=== PATIENT | male | born 1995 | race Two or more races ===

== ENCOUNTER 2020-11-09 15:04 | Inpatient (IN) ==
[2020-11-09 16:17] LABS: Basophils # (auto) 0.01 K/uL (0-0.2); Basophils % (auto) 0.1 %; Eosinophils # (auto) 0.02 K/uL (0-0.5); Eosinophils % (auto) 0.2 %; Hematocrit (blood only) 56.5 % (42-52); Hemoglobin 20.5 g/dL (14.0-18.0); Immature Granulocytes # (auto) 0.11 K/uL (0.00-0.02); Immature Granulocytes % (auto) 0.9 %; Lymphocytes # (auto) 1.94 K/uL (1.2-3.4); Lymphocytes % (auto) 16.5 %; Mean Platelet Volume 10.1 fL (7.4-10.4); Monocytes # (auto) 1.16 K/uL (0.11-0.59); Monocytes % (auto) 9.9 %; Neutrophils # (auto) 8.49 K/uL (1.4-6.5); Neutrophils % (auto) 72.4 %; Platelet Count 254 K/uL (130-400); RDW Coefficient of Variation 13.3 % (11.5-14.5); RDW Standard Deviation 44.6 fL (36.4-46.3); Red Blood Count 6.21 M/uL (4.7-6.1); White Blood Count 11.73 K/uL (4.8-10.8)
[2020-11-09 16:22] LABS: Mean Corpuscular Hgb Conc 36.3 g/dL (32-36)
[2020-11-09 16:32] LABS: Albumin Level 5.7 gm/dl (3.4-5.0); BUN Creatinine Ratio 13.1 (10-20); Calcium 10.5 mg/dl (8.5-10.1); Creatinine Clr Calc Pharmacy 50.3 ml/min; Est GFR (African American) 42.2 ml/min; Est GFR (Non-African American) 36.4 ml/min; Potassium 4.1 mmol/L (3.5-5.1)
[2020-11-09 16:34] LABS: Albumin Globulin Ratio 1.3 (0.9-2); Bilirubin,Total 1.2 mg/dl (0.2-1); Globulin 4.5 gm/dl (2.5-4.0); Total Protein 10.2 gm/dl (6.4-8.2)
[2020-11-09] MEDS ORDERED: ONDANSETRON INJ 2 MG/ML 2 ML VIAL IV STA (16:46)
[2020-11-09] MEDS ORDERED: SODIUM CHLORIDE 0.9% 1000ML 2,000 ML IV ONE (16:46)
[2020-11-09] MEDS ORDERED: KETOROLAC TROMETHAMINE 15 MG/ML VIAL IV ONE (16:46)
--- NOTE | 2020-11-09 16:55 | Emergency Department Note ---
Impression & Plan LORENE (acute kidney injury), Rhabdomyolysis, Hypovolemia, Hyponatremia, Metabolic acidosis ED Provider Note NAME: JOHN TOMLINSON AGE: 25 SEX: M : 1995 ARRIVES VIA: Walk-In INFORMANT: Patient ED PROVIDER(S): Edin Mcmanus DO CHIEF COMPLAINT: Weakness muscle cramps HPI: Patient is a 25-year-old male who presents to the ER for diffuse muscle pain. This started yesterday. He has been unable to keep anything down. He admits to persistent nausea and vomiting. He has diffuse crampy abdominal pain. 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 Does admit to a mild diffuse headache. No chest pain or shortness of breath. Diffuse abdominal pain. Denies any dysuria urgency or frequency. Muscle cramps are throughout the lower extremities and upper extremities. ROS: See above HPI for pertinent positives & negatives. A total of 10 systems reviewed and were otherwise negative. PAST MEDICAL HISTORY:See Below PAST SURGICAL HISTORY:See Below FAMILY HISTORY:See Below SOCIAL HISTORY:See Below HOME MEDICATIONS:See Below ALLERGIES:See Below VITALS:See Below PHYSICAL EXAMINATION: GENERAL: Sitting up in bed, alert, ill appearing EYE EXAM: normal conjunctiva. OROPHARYNX: no exudate, no erythema, lips, buccal mucosa, and tongue normal and mucous membranes are moist NECK: supple, no nuchal rigidity, no adenopathy, non-tender LUNGS: Clear to auscultation. Normal chest wall mechanics HEART: no murmurs, S1 normal and S2 normal ABDOMEN: abdomen soft, non-tender, normo-active bowel sounds, no masses, no rebound or guarding. UPPER EXTREMITIES: upper extremities are grossly normal. LOWER EXTREMITIES: No pitting edema. NEURO EXAM: Normal sensorium, cranial nerves II-XII grossly intact, normal spe ech, no gross weakness of arms, no gross weakness of legs. MEDICAL DECISION MAKING: Patient is a 25-year-old male who presents the ER for diffuse muscle cramping and nausea vomiting. IV was established blood was obtained. Labs show mild leukocytosis of 20,000 and hemoglobin of 20. BMP with metabolic acidosis and a CO2 of 17 and creatinine of 2.4. Calcium was elevated. UA was contaminated with multiple epithelial cells tox was negative. Patient was given 3 L of IV fluids. CT abdomen pelvis and head showed no acute pathology. She was updated bedside and discussed with the hospitalist for further evaluation. Triage Nursing notes reviewed. Limited review of prior medical records performed Vital Signs: reviewed and remarkable for tachy Differential diagnosis: Differential diagnoses includes but is not limited to gastritis, peptic ulcer disease, GERD, gallbladder disease, pancreatitis, small bowel obstruction, acute coronary syndrome, pericarditis, ischemic bowel, irritable bowel disease, irritable bowel syndrome, appendicitis, diverticulitis, malignancy, hernia, urinary tract infection, torsion, perforation, trauma, infectious. ER treatment provided: See below Diagnostics interpreted by me: ECG: none Cardiac Monitoring: An order was placed for continuous cardiac monitoring. The monitor shows a rate of 82 with sinus rhythm. Laboratory studies: As stated above and show below. Imaging studies: CT abdomen pelvis and head showed no acute pathology Consultation(s): Discussed with the hospitalist for further evaluation Procedures: none Critical Care: None Past Med/Surg History Medical History (Updated 11/09/20 @ 21:41 by Edin Mcmanus DO) Seizure Family History (Updated 11/09/20 @ 19:14 by VILMA Vega) Other Family history non-contributory Social History Smoking Status: Current every day smoker Tobacco Type: Cigarettes Cigarettes Per Day: 10; Do You Dip or Chew Tobacco: No; Hx Alcohol Use: No Hx Substance Use: No Preferred Language: Armenian Communication Ability: Effective Medical Coding Instructor Required: No Beliefs That Will Affect Care: None Current Living Situation: Significant Other Other Information That Helps Us Care for You: No Feels Safe at Home: Yes Safety Concerns: Feels Safe At This Time Allergies Allergies Allergy/AdvReac Type Severity Reaction Status Date / Time levetiracetam [From Keppra] AdvReac Severe NOT Verified 11/09/20 16:31 EFFECTIVE--DON'T WORK Home Meds Home Medications Medication Instructions Recorded Confirmed ketorolac [Toradol] 0 mg PO ONCE PRN 11/09/20 11/09/20 lacosamide [Vimpat] 150 mg PO BID 11/09/20 11/09/20 Results & Data (ED) Vital Signs Vital Signs - 24 hr 11/09/20 15:12 11/09/20 16:18 11/09/20 17:01 Temperature 36.4 C L Temperature Source Temporal Artery Scan Pulse Rate 104 H 86 Pulse Rate from SpO2 Sensor 85 Respiratory Rate 16 16 Blood Pressure 130/81 137/73 Blood Pressure Mean 97 94 Pulse Oximetry 94 99 95 Oxygen Delivery Method Room Air Room Air Sepsis Recent Fever Within 48 Hours No Sepsis New/Unexplained Change in Mental Status No Sepsis Action Taken by Nursing No Action Required 11/09/20 17:02 11/09/20 17:45 11/09/20 18:00 Temperature Temperature Source Pulse Rate 86 92 H 80 Pulse Rate from SpO2 Sensor 81 Respiratory Rate 20 20 20 Blood Pressure 137/73 Blood Pressure Mean 94 Pulse Oximetry 97 95 Oxygen Delivery Method Room Air Sepsis Recent Fever Within 48 Hours Sepsis New/Unexplained Change in Mental Status Sepsis Action Taken by Nursing 11/09/20 18:31 11/09/20 19:00 Temperature Temperature Source Pulse Rate 83 84 Pulse Rate from SpO2 Sensor Respiratory Rate 22 22 Blood Pressure 150/63 H 146/72 H Blood Pressure Mean 92 96 Pulse Oximetry Oxygen Delivery Method Sepsis Recent Fever Within 48 Hours Sepsis New/Unexplained Change in Mental Status Sepsis Action Taken by Nursing Laboratory Data Result diagrams: 11/09/20 16:05 11/09/20 19:24 Lab Results 11/09/20 11/09/20 11/09/20 Range/Units 16:05 16:05 16:36 WBC 11.73 H (4.8-10.8) K/uL RBC 6.21 H (4.7-6.1) M/uL Hgb 20.5 H (14.0-18.0) g/dL Hct 56.5 H (42-52) % MCV 91.0 (80-100) fL MCH 33.0 (25-34) pg MCHC 36.3 H (32-36) g/dL RDW Std Deviation 44.6 (36.4-46.3) fL RDW Coeff of Bill 13.3 (11.5-14.5) % Plt Count 254 (130-400) K/uL MPV 10.1 (7.4-10.4) fL Immature Gran % (Auto) 0.9 % Neut % (Auto) 72.4 % Lymph % (Auto) 16.5 % [place] % (Auto) 9.9 % Eos % (Auto) 0.2 % Baso % (Auto) 0.1 % Neut # (Auto) 8.49 H (1.4-6.5) K/uL Lymph # (Auto) 1.94 (1.2-3.4) K/uL [place] # (Auto) 1.16 H (0.11-0.59) K/uL Eos # (Auto) 0.02 (0-0.5) K/uL Baso # (Auto) 0.01 (0-0.2) K/uL Immature Gran # (Auto) 0.11 H (0.00-0.02) K/uL Sodium 128 L (136-145) mmol/L Potassium 4.1 (3.5-5.1) mmol/L Chloride 93 L (98-107) mmol/L Carbon Dioxide 15 L (21-32) mmol/L Anion Gap 20.0 H (3-11) BUN 31 H (7-18) mg/dl Creatinine 2.37 H (0.6-1.4) mg/dl Est Cr Clr Drug Dosing 50.3 ml/min Est GFR ( Amer) 42.2 ml/min Est GFR (Non-Af Amer) 36.4 ml/min BUN/Creatinine Ratio 13.1 (10-20) Glucose 101 H (70-99) mg/dl Osmolality (280-300) mOsm/kg Calcium 10.5 H (8.5-10.1) mg/dl Total Bilirubin 1.2 H (0.2-1) mg/dl AST 43 H (15-37) U/L ALT 76 (12-78) U/L Alkaline Phosphatase 104 (45-117) U/L Total Creatine Kinase 713 H (39-308) U/L Total Protein 10.2 H (6.4-8.2) gm/dl Albumin 5.7 H (3.4-5.0) gm/dl Globulin 4.5 H (2.5-4.0) gm/dl Albumin/Globulin Ratio 1.3 (0.9-2) Lipase 84 (73-393) U/L Urine Color Urine Appearance (Clear) Urine pH (4.5-7.5) Ur Specific [place] (1.000-1.030) Urine Protein (Negative) Urine Glucose (UA) (Negative) Urine Ketones (Negative) Urine Blood (Negative) Urine Nitrite (Negative) Urine Bilirubin (Negative) Urine Urobilinogen (Negative) Ur Leukocyte Esterase (Negative) Urine WBC (Auto) (0-5) /hpf Urine RBC (Auto) (0-4) /hpf U Hyaline Cast (Auto) (0-5) /lpf U Epithel Cells (Auto) (0-5) /lpf Urine Bacteria (Auto) (Negative) Granular Casts (0) /lpf Urine Osmolality (500-800) mOsm/kg Urine Opiates Screen (Neg) Ur Methadone, Qual (Neg) Urine Barbiturates (Neg) Ur Phencyclidine (PCP) (Neg) U Amphetamin/Meth Scrn (Neg) MDMA (Ecstasy) Screen (Neg) U Benzodiazepines Scrn (Neg) Ur Cocaine Metabolite (Neg) U Marijuana (THC) Screen (Neg) Ethyl Alcohol mg/dL (0-3) mg/dl COVID-19 Eval Order SARS-CoV-2 (PCR) (Negative) 11/09/20 11/09/20 11/09/20 Range/Units 17:00 17:00 17:00 WBC (4.8-10.8) K/uL RBC (4.7-6.1) M/uL Hgb (14.0-18.0) g/dL Hct (42-52) % MCV (80-100) fL MCH (25-34) pg MCHC (32-36) g/dL RDW Std Deviation (36.4-46.3) fL RDW Coeff of Bill (11.5-14.5) % Plt Count (130-400) K/uL MPV (7.4-10.4) fL Immature Gran % (Auto) % Neut % (Auto) % Lymph % (Auto) % [place] % (Auto) % Eos % (Auto) % Baso % (Auto) % Neut # (Auto) (1.4-6.5) K/uL Lymph # (Auto) (1.2-3.4) K/uL [place] # (Auto) (0.11-0.59) K/uL Eos # (Auto) (0-0.5) K/uL Baso # (Auto) (0-0.2) K/uL Immature Gran # (Auto) (0.00-0.02) K/uL Sodium (136-145) mmol/L Potassium (3.5-5.1) mmol/L Chloride (98-107) mmol/L Carbon Dioxide (21-32) mmol/L Anion Gap (3-11) BUN (7-18) mg/dl Creatinine (0.6-1.4) mg/dl Est Cr Clr Drug Dosing ml/min Est GFR ( Amer) ml/min Est GFR (Non-Af Amer) ml/min BUN/Creatinine Ratio (10-20) Glucose (70-99) mg/dl Osmolality (280-300) mOsm/kg Calcium (8.5-10.1) mg/dl Total Bilirubin (0.2-1) mg/dl AST (15-37) U/L ALT (12-78) U/L Alkaline Phosphatase (45-117) U/L Total Creatine Kinase (39-308) U/L Total Protein (6.4-8.2) gm/dl Albumin (3.4-5.0) gm/dl Globulin (2.5-4.0) gm/dl Albumin/Globulin Ratio (0.9-2) Lipase (73-393) U/L Urine Color Dark Yellow Urine Appearance Cloudy A (Clear) Urine pH 5.0 (4.5-7.5) Ur Specific [place] 1.022 (1.000-1.030) Urine Protein 4+ H (Negative) Urine Glucose (UA) Negative (Negative) Urine Ketones 1+ H (Negative) Urine Blood 2+ H (Negative) Urine Nitrite Negative (Negative) Urine Bilirubin 3+ H (Negative) Urine Urobilinogen Negative (Negative) Ur Leukocyte Esterase Negative (Negative) Urine WBC (Auto) 1-5 (0-5) /hpf Urine RBC (Auto) 10-30 H (0-4) /hpf U Hyaline Cast (Auto) 5-10 H (0-5) /lpf U Epithel Cells (Auto) >30 H (0-5) /lpf Urine Bacteria (Auto) 1+ H (Negative) Granular Casts 5-10 H (0) /lpf Urine Osmolality 360 L (500-800) mOsm/kg Urine Opiates Screen Neg (Neg) Ur Methadone, Qual Neg (Neg) Urine Barbiturates Neg (Neg) Ur Phencyclidine (PCP) Neg (Neg) U Amphetamin/Meth Scrn Neg (Neg) MDMA (Ecstasy) Screen Neg (Neg) U Benzodiazepines Scrn Neg (Neg) Ur Cocaine Metabolite Neg (Neg) U Marijuana (THC) Screen Neg (Neg) Ethyl Alcohol mg/dL (0-3) mg/dl COVID-19 Eval Order SARS-CoV-2 (PCR) (Negative) 11/09/20 11/09/20 11/09/20 Range/Units 17:01 17:01 17:22 WBC (4.8-10.8) K/uL RBC (4.7-6.1) M/uL Hgb (14.0-18.0) g/dL Hct (42-52) % MCV (80-100) fL MCH (25-34) pg MCHC (32-36) g/dL RDW Std Deviation (36.4-46.3) fL RDW Coeff of Bill (11.5-14.5) % Plt Count (130-400) K/uL MPV (7.4-10.4) fL Immature Gran % (Auto) % Neut % (Auto) % Lymph % (Auto) % [place] % (Auto) % Eos % (Auto) % Baso % (Auto) % Neut # (Auto) (1.4-6.5) K/uL Lymph # (Auto) (1.2-3.4) K/uL [place] # (Auto) (0.11-0.59) K/uL Eos # (Auto) (0-0.5) K/uL Baso # (Auto) (0-0.2) K/uL Immature Gran # (Auto) (0.00-0.02) K/uL Sodium (136-145) mmol/L Potassium (3.5-5.1) mmol/L Chloride (98-107) mmol/L Carbon Dioxide (21-32) mmol/L Anion Gap (3-11) BUN (7-18) mg/dl Creatinine (0.6-1.4) mg/dl Est Cr Clr Drug Dosing ml/min Est GFR ( Amer) ml/min Est GFR (Non-Af Amer) ml/min BUN/Creatinine Ratio (10-20) Glucose (70-99) mg/dl Osmolality 288 (280-300) mOsm/kg Calcium (8.5-10.1) mg/dl Total Bilirubin (0.2-1) mg/dl AST (15-37) U/L ALT (12-78) U/L Alkaline Phosphatase (45-117) U/L Total Creatine Kinase (39-308) U/L Total Protein (6.4-8.2) gm/dl Albumin (3.4-5.0) gm/dl Globulin (2.5-4.0) gm/dl Albumin/Globulin Ratio (0.9-2) Lipase (73-393) U/L Urine Color Urine Appearance (Clear) Urine pH (4.5-7.5) Ur Specific [place] (1.000-1.030) Urine Protein (Negative) Urine Glucose (UA) (Negative) Urine Ketones (Negative) Urine Blood (Negative) Urine Nitrite (Negative) Urine Bilirubin (Negative) Urine Urobilinogen (Negative) Ur Leukocyte Esterase (Negative) Urine WBC (Auto) (0-5) /hpf Urine RBC (Auto) (0-4) /hpf U Hyaline Cast (Auto) (0-5) /lpf U Epithel Cells (Auto) (0-5) /lpf Urine Bacteria (Auto) (Negative) Granular Casts (0) /lpf Urine Osmolality (500-800) mOsm/kg Urine Opiates Screen (Neg) Ur Methadone, Qual (Neg) Urine Barbiturates (Neg) Ur Phencyclidine (PCP) (Neg) U Amphetamin/Meth Scrn (Neg) MDMA (Ecstasy) Screen (Neg) U Benzodiazepines Scrn (Neg) Ur Cocaine Metabolite (Neg) U Marijuana (THC) Screen (Neg) Ethyl Alcohol mg/dL (0-3) mg/dl COVID-19 Eval Order Covid19 at [facility] SARS-CoV-2 (PCR) NEGATIVE (Negative) 11/09/20 Range/Units 17:22 WBC (4.8-10.8) K/uL RBC (4.7-6.1) M/uL Hgb (14.0-18.0) g/dL Hct (42-52) % MCV (80-100) fL MCH (25-34) pg MCHC (32-36) g/dL RDW Std Deviation (36.4-46.3) fL RDW Coeff of Bill (11.5-14.5) % Plt Count (130-400) K/uL MPV (7.4-10.4) fL Immature Gran % (Auto) % Neut % (Auto) % Lymph % (Auto) % [place] % (Auto) % Eos % (Auto) % Baso % (Auto) % Neut # (Auto) (1.4-6.5) K/uL Lymph # (Auto) (1.2-3.4) K/uL [place] # (Auto) (0.11-0.59) K/uL Eos # (Auto) (0-0.5) K/uL Baso # (Auto) (0-0.2) K/uL Immature Gran # (Auto) (0.00-0.02) K/uL Sodium (136-145) mmol/L Potassium (3.5-5.1) mmol/L Chloride (98-107) mmol/L Carbon Dioxide (21-32) mmol/L Anion Gap (3-11) BUN (7-18) mg/dl Creatinine (0.6-1.4) mg/dl Est Cr Clr Drug Dosing ml/min Est GFR ( Amer) ml/min Est GFR (Non-Af Amer) ml/min BUN/Creatinine Ratio (10-20) Glucose (70-99) mg/dl Osmolality (280-300) mOsm/kg Calcium (8.5-10.1) mg/dl Total Bilirubin (0.2-1) mg/dl AST (15-37) U/L ALT (12-78) U/L Alkaline Phosphatase (45-117) U/L Total Creatine Kinase (39-308) U/L Total Protein (6.4-8.2) gm/dl Albumin (3.4-5.0) gm/dl Globulin (2.5-4.0) gm/dl Albumin/Globulin Ratio (0.9-2) Lipase (73-393) U/L Urine Color Urine Appearance (Clear) Urine pH (4.5-7.5) Ur Specific [place] (1.000-1.030) Urine Protein (Negative) Urine Glucose (UA) (Negative) Urine Ketones (Negative) Urine Blood (Negative) Urine Nitrite (Negative) Urine Bilirubin (Negative) Urine Urobilinogen (Negative) Ur Leukocyte Esterase (Negative) Urine WBC (Auto) (0-5) /hpf Urine RBC (Auto) (0-4) /hpf U Hyaline Cast (Auto) (0-5) /lpf U Epithel Cells (Auto) (0-5) /lpf Urine Bacteria (Auto) (Negative) Granular Casts (0) /lpf Urine Osmolality (500-800) mOsm/kg Urine Opiates Screen (Neg) Ur Methadone, Qual (Neg) Urine Barbiturates (Neg) Ur Phencyclidine (PCP) (Neg) U Amphetamin/Meth Scrn (Neg) MDMA (Ecstasy) Screen (Neg) U Benzodiazepines Scrn (Neg) Ur Cocaine Metabolite (Neg) U Marijuana (THC) Screen (Neg) Ethyl Alcohol mg/dL < 3.0 (0-3) mg/dl COVID-19 Eval Order SARS-CoV-2 (PCR) (Negative) Administered Medications Parenteral Electrolytes (Normosol-R) 1,000 mls @ 150 mls/hr IV .Q6H40M KERA Stop: 12/09/20 20:25 Last Admin: 11/09/20 21:03 Dose: 150 mls/hr Documented by: [id number] Lacosamide (Lacosamide 50 Mg Tablet) 150 mg PO BID KERA Stop: 12/09/20 20:59 Last Admin: 11/09/20 21:03 Dose: 150 mg Documented by: [id number] Discontinued Medications Sodium Chloride (Nss 1000ml) 2,000 mls @ 999 mls/hr IV .Q2H1M ONE Stop: 11/09/20 18:46 Last Infusion: 11/09/20 20:55 Dose: 0 mls/hr Documented by: [id number] Admin: 11/09/20 16:58 Dose: 999 mls/hr Documented by: [id number] Parenteral Electrolytes (Normosol-R) 1,000 mls @ 999 mls/hr IV .Q1H1M ONE Stop: 11/09/20 18:56 Last Infusion: 11/09/20 20:55 Dose: 0 mls/hr Documented by: [id number] Admin: 11/09/20 18:09 Dose: 999 mls/hr Documented by: [id number] Ketorolac Tromethamine (Ketorolac Tromethamine 15 Mg/Ml Vial) 10 mg IV NOW ONE Stop: 11/09/20 16:47 Last Admin: 11/09/20 16:58 Dose: Not Given Documented by: [id number] Ondansetron HCl (Ondansetron Inj 2 Mg/Ml 2 Ml Vial) 4 mg IV NOW STA Stop: 11/09/20 16:47 Last Admin: 11/09/20 16:58 Dose: 4 mg Documented by: [id number] Imaging Data Radiologist's Impression: Head CT 11/09/20 16:28 CT head/brain wo con CLINICAL HISTORY: Severe headache COMPARISON STUDY: No previous studies for comparison. TECHNIQUE: Axial CT of the brain is performed from the vertex to the skull base. IV contrast was not administered for this examination. A dose lowering technique was utilized adhering to the principles of ALARA. CT DOSE: 729.78 mGycm FINDINGS: No intra or extra-axial mass lesions are visualized. There is no CT evidence of acute cortical infarction. There is no evidence of midline shift. There is no acute hemorrhage. No calvarial fractures are visualized. The blood pool appears slightly hyperdense. Correlation with hemoglobin and hematocrit levels recommended. There is no evidence of pathologic ventricular dilatation. There is a tiny inflammatory polyp/retention cyst within the left maxillary sinus IMPRESSION: 1. Hyperdense blood pool. Please correlate for any evidence of elevated hemoglobin and hematocrit levels. 2. Otherwise no acute intracranial findings. ACT 112: Negative or not required by law. Electronically signed by: Humza Vargas M.D. 11/09/2020 5:49 PM Abdomen/Pelvis CT 11/09/20 16:51 CT SCAN OF THE ABDOMEN AND PELVIS WITHOUT CONTRAST CLINICAL HISTORY: Generalized abdominal pain COMPARISON STUDY: No previous studies for comparison. TECHNIQUE: CT scan of the abdomen and pelvis was performed from the lung bases to the proximal femurs. Images are reviewed in the axial, sagittal, and coronal planes. IV contrast was not administered for this examination. A dose lowering technique was utilized adhering to the principles of ALARA. CT DOSE: 951.22 mGycm FINDINGS: Lower chest: The heart is normal in size and configuration, without pericardial effusion. The lung bases and pleural spaces are clear. Liver: The unenhanced liver is normal in size, contour, and attenuation. There is no intrahepatic biliary ductal dilatation. Gallbladder: Unremarkable. Spleen: Normal in size and attenuation. Pancreas: Unremarkable. Adrenal glands: Unremarkable. Kidneys: No renal, ureteral, or bladder calculi are visualized. Bowel: There are no transition zones indicate bowel obstruction. There is no evidence of acute diverticulitis. The appendix appears normal. Peritoneum: There is no intraperitoneal free air or abdominal ascites. Vasculature: The abdominal aorta is normal in course and caliber. Adenopathy: Minimally prominent mesenteric lymph nodes are likely reactive Pelvic viscera: The bladder, and pelvic viscera are unremarkable. Skeletal structures: No destructive osseous lesions are seen. IMPRESSION: 1. No evidence of bowel obstruction. No evidence of free air 2. No evidence of acute diverticulitis. No evidence of acute appendicitis 3. No renal, ureteral, or bladder calculi identified 4. Mildly prominent mesenteric lymph nodes statistically reactive ACT 112: Negative or not required by law. Electronically signed by: Humza Vargas M.D. 11/09/2020 5:53 PM Discharge Plan Visit Data Chief Complaint: Pain (Generalized) Stated Complaint: DEHYDRATED, ABDOMNIAL PAIN, BODY CRAMPS ED Provider: Edin Mcmanus Discharge Problem: LORENE (acute kidney injury), Rhabdomyolysis, Hypovolemia, Hyponatremia, Metabolic acidosis Patient Disposition: Admitted As Inpatient Discharge Instructions Interventions: ED Discharge Assessment Last Done: 11/09/20 20:04 Discharge Problem: Rhabdomyolysis Qualifiers: Rhabdomyolysis type: non-traumatic Qualified Code(s): M62.82 - Rhabdomyolysis
--- NOTE | 2020-11-09 17:50 | CT Scan Report ---
CT head/brain wo con CLINICAL HISTORY: Severe headache COMPARISON STUDY: No previous studies for comparison. TECHNIQUE: Axial CT of the brain is performed from the vertex to the skull base. IV contrast was not administered for this examination. A dose lowering technique was utilized adhering to the principles of ALARA. CT DOSE: 729.78 mGycm FINDINGS: No intra or extra-axial mass lesions are visualized. There is no CT evidence of acute cortical infarc tion. There is no evidence of midline shift. There is no acute hemorrhage. No calvarial fractures ar e visualized. The blood pool appears slightly hyperdense. Correlation with hemoglobin and hematocrit levels recomme nded. There is no evidence of pathologic ventricular dilatation. There is a tiny inflammatory polyp/retention cyst within the left maxillary sinus IMPRESSION: 1. Hyperdense blood pool. Please correlate for any evidence of elevated hemoglobin and hematocrit lev els. 2. Otherwise no acute intracranial findings. ACT 112: Negative or not required by law. Electronically signed by: Humza Vargas M.D. 11/09/2020 5:49 PM
--- NOTE | 2020-11-09 17:54 | CT Scan Report ---
CT SCAN OF THE ABDOMEN AND PELVIS WITHOUT CONTRAST CLINICAL HISTORY: Generalized abdominal pain COMPARISON STUDY: No previous studies for comparison. TECHNIQUE: CT scan of the abdomen and pelvis was performed from the lung bases to the proximal femurs . Images are reviewed in the axial, sagittal, and coronal planes. IV contrast was not administered fo r this examination. A dose lowering technique was utilized adhering to the principles of ALARA. CT DOSE: 951.22 mGycm FINDINGS: Lower chest: The heart is normal in size and configuration, without pericardial effusion. The lung ba ses and pleural spaces are clear. Liver: The unenhanced liver is normal in size, contour, and attenuation. There is no intrahepatic alyssa iary ductal dilatation. Gallbladder: Unremarkable. Spleen: Normal in size and attenuation. Pancreas: Unremarkable. Adrenal glands: Unremarkable. Kidneys: No renal, ureteral, or bladder calculi are visualized. Bowel: There are no transition zones indicate bowel obstruction. There is no evidence of acute divert iculitis. The appendix appears normal. Peritoneum: There is no intraperitoneal free air or abdominal ascites. Vasculature: The abdominal aorta is normal in course and caliber. Adenopathy: Minimally prominent mesenteric lymph nodes are likely reactive Pelvic viscera: The bladder, and pelvic viscera are unremarkable. Skeletal structures: No destructive osseous lesions are seen. IMPRESSION: 1. No evidence of bowel obstruction. No evidence of free air 2. No evidence of acute diverticulitis. No evidence of acute appendicitis 3. No renal, ureteral, or bladder calculi identified 4. Mildly prominent mesenteric lymph nodes statistically reactive ACT 112: Negative or not required by law. Electronically signed by: Humza Vargas M.D. 11/09/2020 5:53 PM
[2020-11-09 17:55] LABS: Appearance Urine Cloudy (Clear); Bilirubin Urine 3+ (Negative); Blood Urine 2+ (Negative); Color Urine Dark Yellow; Epithelial Cell Urine Auto >30 /lpf (0-5); Glucose Urine UA Negative (Negative); Ketones Urine 1+ (Negative); Leukocyte Esterase Urine Negative (Negative); Nitrite Urine Negative (Negative); Protein Urine 4+ (Negative); Specific Gravity Urine 1.022 (1.000-1.030); Urobilinogen Urine Negative (Negative)
[2020-11-09] MEDS ORDERED: NORMOSOL-R 1,000 ML IV ONE (17:56)
[2020-11-09 18:15] LABS: Bacteria Urine Automated 1+ (Negative)
[2020-11-09 19:13] LABS: Amphetamines+Metham, Urine Neg (Neg); Barbiturates, Urine Neg (Neg); Benzodiazepine, Urine Neg (Neg); Cocaine, Urine Neg (Neg); MDMA (Ecstacy), Urine Neg (Neg); Methadone, Urine Neg (Neg); Opiate, Urine Neg (Neg); Phencyclidine, Urine Neg (Neg)
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
[2020-11-09 19:51] LABS: Base Excess VBG -8.3 mEq/L; Oxygen Saturation VBG 92.8 %; pH VBG 7.35 (7.36-7.41)
[2020-11-09 20:08] LABS: BUN Creatinine Ratio 16.8 (10-20); Calcium 8.1 mg/dl (8.5-10.1); Creatinine Clr Calc Pharmacy 64.1 ml/min; Est GFR (African American) 56.6 ml/min; Est GFR (Non-African American) 48.8 ml/min; Magnesium 2.5 mg/dl (1.8-2.4); Potassium 4.7 mmol/L (3.5-5.1)
[2020-11-09] MEDS ORDERED: ACETAMINOPHEN 325 MG TAB PO PRN (20:26)
[2020-11-09] MEDS ORDERED: ONDANSETRON INJ 2 MG/ML 2 ML VIAL IV PRN (20:26)
[2020-11-09] MEDS: NORMOSOL-R 1,000 ML IV SCH (21:03)
[2020-11-09] MEDS: LACOSAMIDE 50 MG TABLET PO SCH (21:03)
[2020-11-09] MEDS ORDERED: CALCIUM GLUCONATE 10% 1,000 MG in SODIUM CHLORIDE 0.9% 50 ML IV ONE (21:38)
[2020-11-09] MEDS ORDERED: LORazepam 4 MG/8 ML VIAL IV PRN (21:52)
[2020-11-10] MEDS: NORMOSOL-R 1,000 ML IV SCH ×4 (03:44→23:21)
[2020-11-10 06:44] LABS: Appearance Urine Clear (Clear); Bacteria Urine Automated Negative (Negative); Bilirubin Urine Negative (Negative); Blood Urine 2+ (Negative); Color Urine Yellow; Epithelial Cell Urine Auto >30 /lpf (0-5); Glucose Urine UA Negative (Negative); Ketones Urine 3+ (Negative); Leukocyte Esterase Urine Negative (Negative); Nitrite Urine Negative (Negative); Protein Urine Trace (Negative); RBC Urine Automated 0-4 /hpf (0-4); Specific Gravity Urine 1.019 (1.000-1.030); Urobilinogen Urine Negative (Negative)
[2020-11-10 07:42] LABS: Basophils # (auto) 0.01 K/uL (0-0.2); Basophils % (auto) 0.1 %; Eosinophils # (auto) 0.04 K/uL (0-0.5); Eosinophils % (auto) 0.4 %; Hematocrit (blood only) 45.9 % (42-52); Immature Granulocytes # (auto) 0.07 K/uL (0.00-0.02); Immature Granulocytes % (auto) 0.8 %; Lymphocytes # (auto) 1.72 K/uL (1.2-3.4); Lymphocytes % (auto) 18.7 %; Mean Corpuscular Hemoglobin 32.3 pg (25-34); Mean Corpuscular Hgb Conc 34.9 g/dL (32-36); Mean Corpuscular Volume 92.5 fL (80-100); Mean Platelet Volume 10.1 fL (7.4-10.4); Monocytes # (auto) 1.04 K/uL (0.11-0.59); Monocytes % (auto) 11.3 %; Neutrophils # (auto) 6.33 K/uL (1.4-6.5); Neutrophils % (auto) 68.7 %; Platelet Count 198 K/uL (130-400); RDW Coefficient of Variation 13.3 % (11.5-14.5); RDW Standard Deviation 45.2 fL (36.4-46.3); Red Blood Count 4.96 M/uL (4.7-6.1); White Blood Count 9.21 K/uL (4.8-10.8)
[2020-11-10 08:08] LABS: BUN Creatinine Ratio 19.3 (10-20); Calcium 8.5 mg/dl (8.5-10.1); Creatinine Clr Calc Pharmacy 77.5 ml/min; Est GFR (African American) 64.5 ml/min; Est GFR (Non-African American) 55.6 ml/min; Magnesium 2.7 mg/dl (1.8-2.4)
[2020-11-10] MEDS: LACOSAMIDE 50 MG TABLET PO SCH ×2 (09:10→20:56)
--- NOTE | 2020-11-10 11:23 | Hospitalist Progress Note ---
Date of Service November 10, 2020 Assessment & Plan (1) Rhabdomyolysis: Plan: Strenuous exercise induced with complicating symptoms consistent with heat stress injury, Campuzano score- 5, CK on admit 713. Tox screen negative. Patient denied he seized or lost consciousness. - Continue IVF, monitor urine currently clear +3 ketones +2 blood 5-10 hyaline casts - Monitor BMP and CK - Urine culture pending (2) Heat stress: Plan: resolved, likely inciting event to above (3) Hypovolemia: Plan: Hbg 20.5 on admit -continue IVF -monitor CBC, Hgb currently 16 (4) Hyponatremia: Plan: On admit NA 128 with hypochloremia- consistent with hypovolemia hyponatremia. He received 1L 0.9% saline in the EMD and then Normosol x 1 liter - Continue Normosol - Monitor BMP current Na 134 - Patient can continue to drink water as well unless NA drops (5) Hypercalcemia: Plan: On admit mild at 10.5- likely related to dehydration as above - monitor BMP Ca currently 8.5 (6) Metabolic acidosis: Plan: On admit HAGAP metabolic acidosis, likely related to BUN and Ketosis -resolved (7) LORENE (acute kidney injury): Plan: Likely physiology as above dehydration, heat stress, and elevated CK - Continue intravascular resuscitation - Follow Hco3- currently responding with intravascular repletion, HCO3 currently 18 - If HCO3 continues to decrease can consider isotonic HCO3 (8) Seizure: Plan: History of seizures refractory to Keppra - On Vimpat- no dose adjustment needed for renal function at this time - If patient seizes - 2-4 mg Ativan, repeat 5 min as needed to break Plan: FENa: [] Code Status: [Full Code] DVT PPX: [None] PT/OT: None Case Management: [] Dispo: [] Marlee Morris Do PGY 1, FCM Admission and Anticipated Discharge Date Admission Date: November 09, 2020 Supervising Physician Co-Signing Physician Notes Attending attestation Pt seen and examined in concert with Dr. Morris. In agreement with the documented findings as noted in the resident documentation with any exceptions or additions as noted here. Subjective improvement in fatigue and myalgias from admission without significant LE swelling. On examination, S1/S2 nl RRR no MCG. CTAB. Abd NT/ND BS+ve. Trace LE edema to the ankle. LORENE in the setting of heat stress - creatinine downtrending to 1.67. Trend BMP. Continue IVF supplementation and encourage POI. Monitor UOP Rhabdomyolisis - CK of 713 - repeat in AM, continue hydration as noted above Hyponatremia - improved to 134 today - hydrating, repeat in AM for stability Metabolic acidosis - improving gap by 1. Monitor. Seizure disorder - lacosamide. Order for ativan as noted for seizure episode, repeat q5min if needed Else see resident documentation as noted. Subjective 25yo Male admitted for weakness, muscle cramps with PMH of seizures, found to have rhabdomyolysis, given 2L fluids and 1 dose toradol in ER. Patient seen at bedside, slept ate well voiding normally, states he has never had an episode lik e this before. He says he has had seizures since 1 year ago managed with ketorolac and lacosamide and had 7 episodes last week, but this episode did not feel like a seizure. He had MRI performed last year for seizures and says he was told his heart wasn't pumping enough. He says he regularly drinks lots of water, but he did sweat a great deal yesterday carrying heavy furniture. Review of Systems Constitutional: no fever and no chills Ear, Nose, Mouth, Throat: no ear pain, no hearing loss, no dizziness and no change in voice Respiratory: no cough and no dyspnea Cardiovascular: no chest pain and no palpitations Gastrointestinal: + constipation; no abdominal pain, no nausea, no vomiting and no diarrhea/loose stools Musculoskeletal: no swelling Integumentary: no rash Physical Exam Constitutional: average body habitus, cooperative and comfortable Respiratory: normal respiratory effort, lungs clear to auscultation normal respiratory effort Auscultation: lungs clear to auscultation bilaterally Cardiovascular: RRR, no murmur, no edema Heart Sounds: normal S1 and normal S2; no gallop, no murmur and no cardiac rub Gastrointestinal (Abdomen): normal bowel sounds, soft, nontender, no hepatosplenomegaly Results & Data Results & Data ([facility]) Vital Signs (Past 12 Hours) Vital Signs Temp Pulse Pulse Resp BP Pulse Ox 11/10/20 08:47 36.4 C L 83 16 150/88 H 96 11/10/20 08:30 83 11/10/20 00:41 92 H Laboratory Results 11/10/20 11/10/20 11/10/20 Range/Units 07:12 07:12 06:24 WBC 9.21 (4.8-10.8) K/uL RBC 4.96 (4.7-6.1) M/uL Hgb 16.0 D (14.0-18.0) g/dL Hct 45.9 (42-52) % MCV 92.5 (80-100) fL MCH 32.3 (25-34) pg MCHC 34.9 (32-36) g/dL RDW Std Deviation 45.2 (36.4-46.3) fL RDW Coeff of Bill 13.3 (11.5-14.5) % Plt Count 198 (130-400) K/uL MPV 10.1 (7.4-10.4) fL Immature Gran % (Auto) 0.8 % Neut % (Auto) 68.7 % Lymph % (Auto) 18.7 % [place] % (Auto) 11.3 % Eos % (Auto) 0.4 % Baso % (Auto) 0.1 % Neut # (Auto) 6.33 (1.4-6.5) K/uL Lymph # (Auto) 1.72 (1.2-3.4) K/uL [place] # (Auto) 1.04 H (0.11-0.59) K/uL Eos # (Auto) 0.04 (0-0.5) K/uL Baso # (Auto) 0.01 (0-0.2) K/uL Immature Gran # (Auto) 0.07 H (0.00-0.02) K/uL VBG pH (7.36-7.41) VBG pCO2 (38-50) mmHg VBG pO2 mmHg VBG HCO3 mmol/L VBG O2 Saturation % VBG Base Excess mEq/L Barometric Pressure mm/Hg Sodium 134 L (136-145) mmol/L Potassium 4.0 (3.5-5.1) mmol/L Chloride 101 (98-107) mmol/L Carbon Dioxide 18 L (21-32) mmol/L Anion Gap 15.0 H (3-11) BUN 32 H (7-18) mg/dl Creatinine 1.67 H (0.6-1.4) mg/dl Est Cr Clr Drug Dosing 77.5 ml/min Est GFR ( Amer) 64.5 ml/min Est GFR (Non-Af Amer) 55.6 ml/min BUN/Creatinine Ratio 19.3 (10-20) Glucose 80 (70-99) mg/dl Osmolality (280-300) mOsm/kg Lactate (0.4-2.0) mmol/L Calcium 8.5 (8.5-10.1) mg/dl Ionized Calcium (1.12-1.32) mmol/L Phosphorus (2.5-4.9) mg/dl Magnesium 2.7 H (1.8-2.4) mg/dl Specimen Hemolysis Urine Color Yellow Urine Appearance Clear (Clear) Urine pH 5.0 (4.5-7.5) Ur Specific [place] 1.019 (1.000-1.030) Urine Protein Trace H (Negative) Urine Glucose (UA) Negative (Negative) Urine Ketones 3+ H (Negative) Urine Blood 2+ H (Negative) Urine Nitrite Negative (Negative) Urine Bilirubin Negative (Negative) Urine Urobilinogen Negative (Negative) Ur Leukocyte Esterase Negative (Negative) Urine WBC (Auto) 1-5 (0-5) /hpf Urine RBC (Auto) 0-4 (0-4) /hpf U Hyaline Cast (Auto) 5-10 H (0-5) /lpf U Epithel Cells (Auto) >30 H (0-5) /lpf Urine Bacteria (Auto) Negative (Negative) Urine Osmolality (500-800) mOsm/kg Urine Opiates Screen (Neg) Ur Methadone, Qual (Neg) Urine Barbiturates (Neg) Ur Phencyclidine (PCP) (Neg) U Amphetamin/Meth Scrn (Neg) MDMA (Ecstasy) Screen (Neg) U Benzodiazepines Scrn (Neg) Ur Cocaine Metabolite (Neg) U Marijuana (THC) Screen (Neg) 11/10/20 11/09/20 11/09/20 Range/Units 00:14 20:47 19:24 WBC (4.8-10.8) K/uL RBC (4.7-6.1) M/uL Hgb (14.0-18.0) g/dL Hct (42-52) % MCV (80-100) fL MCH (25-34) pg MCHC (32-36) g/dL RDW Std Deviation (36.4-46.3) fL RDW Coeff of Bill (11.5-14.5) % Plt Count (130-400) K/uL MPV (7.4-10.4) fL Immature Gran % (Auto) % Neut % (Auto) % Lymph % (Auto) % [place] % (Auto) % Eos % (Auto) % Baso % (Auto) % Neut # (Auto) (1.4-6.5) K/uL Lymph # (Auto) (1.2-3.4) K/uL [place] # (Auto) (0.11-0.59) K/uL Eos # (Auto) (0-0.5) K/uL Baso # (Auto) (0-0.2) K/uL Immature Gran # (Auto) (0.00-0.02) K/uL VBG pH (7.36-7.41) VBG pCO2 (38-50) mmHg VBG pO2 mmHg VBG HCO3 mmol/L VBG O2 Saturation % VBG Base Excess mEq/L Barometric Pressure mm/Hg Sodium 133 L (136-145) mmol/L Potassium (3.5-5.1) mmol/L Chloride (98-107) mmol/L Carbon Dioxide (21-32) mmol/L Anion Gap (3-11) BUN (7-18) mg/dl Creatinine (0.6-1.4) mg/dl Est Cr Clr Drug Dosing ml/min Est GFR ( Amer) ml/min Est GFR (Non-Af Amer) ml/min BUN/Creatinine Ratio (10-20) Glucose (70-99) mg/dl Osmolality (280-300) mOsm/kg Lactate 0.9 (0.4-2.0) mmol/L Calcium (8.5-10.1) mg/dl Ionized Calcium (1.12-1.32) mmol/L Phosphorus 5.2 H (2.5-4.9) mg/dl Magnesium (1.8-2.4) mg/dl Specimen Hemolysis Urine Color Urine Appearance (Clear) Urine pH (4.5-7.5) Ur Specific [place] (1.000-1.030) Urine Protein (Negative) Urine Glucose (UA) (Negative) Urine Ketones (Negative) Urine Blood (Negative) Urine Nitrite (Negative) Urine Bilirubin (Negative) Urine Urobilinogen (Negative) Ur Leukocyte Esterase (Negative) Urine WBC (Auto) (0-5) /hpf Urine RBC (Auto) (0-4) /hpf U Hyaline Cast (Auto) (0-5) /lpf U Epithel Cells (Auto) (0-5) /lpf Urine Bacteria (Auto) (Negative) Urine Osmolality (500-800) mOsm/kg Urine Opiates Screen (Neg) Ur Methadone, Qual (Neg) Urine Barbiturates (Neg) Ur Phencyclidine (PCP) (Neg) U Amphetamin/Meth Scrn (Neg) MDMA (Ecstasy) Screen (Neg) U Benzodiazepines Scrn (Neg) Ur Cocaine Metabolite (Neg) U Marijuana (THC) Screen (Neg) 11/09/20 11/09/20 11/09/20 Range/Units 19:24 19:24 19:20 WBC (4.8-10.8) K/uL RBC (4.7-6.1) M/uL Hgb (14.0-18.0) g/dL Hct (42-52) % MCV (80-100) fL MCH (25-34) pg MCHC (32-36) g/dL RDW Std Deviation (36.4-46.3) fL RDW Coeff of Bill (11.5-14.5) % Plt Count (130-400) K/uL MPV (7.4-10.4) fL Immature Gran % (Auto) % Neut % (Auto) % Lymph % (Auto) % [place] % (Auto) % Eos % (Auto) % Baso % (Auto) % Neut # (Auto) (1.4-6.5) K/uL Lymph # (Auto) (1.2-3.4) K/uL [place] # (Auto) (0.11-0.59) K/uL Eos # (Auto) (0-0.5) K/uL Baso # (Auto) (0-0.2) K/uL Immature Gran # (Auto) (0.00-0.02) K/uL VBG pH 7.35 L (7.36-7.41) VBG pCO2 28 L (38-50) mmHg VBG pO2 62 mmHg VBG HCO3 15 mmol/L VBG O2 Saturation 92.8 % VBG Base Excess -8.3 mEq/L Barometric Pressure 735.7 mm/Hg Sodium 132 L (136-145) mmol/L Potassium 4.7 (3.5-5.1) mmol/L Chloride 99 (98-107) mmol/L Carbon Dioxide 17 L (21-32) mmol/L Anion Gap 16.0 H (3-11) BUN 31 H (7-18) mg/dl Creatinine 1.86 H D (0.6-1.4) mg/dl Est Cr Clr Drug Dosing 64.1 ml/min Est GFR ( Amer) 56.6 ml/min Est GFR (Non-Af Amer) 48.8 ml/min BUN/Creatinine Ratio 16.8 (10-20) Glucose 85 (70-99) mg/dl Osmolality (280-300) mOsm/kg Lactate (0.4-2.0) mmol/L Calcium 8.1 L D (8.5-10.1) mg/dl Ionized Calcium 0.99 L (1.12-1.32) mmol/L Phosphorus (2.5-4.9) mg/dl Magnesium 2.5 H (1.8-2.4) mg/dl Specimen Hemolysis Urine Color Urine Appearance (Clear) Urine pH (4.5-7.5) Ur Specific [place] (1.000-1.030) Urine Protein (Negative) Urine Glucose (UA) (Negative) Urine Ketones (Negative) Urine Blood (Negative) Urine Nitrite (Negative) Urine Bilirubin (Negative) Urine Urobilinogen (Negative) Ur Leukocyte Esterase (Negative) Urine WBC (Auto) (0-5) /hpf Urine RBC (Auto) (0-4) /hpf U Hyaline Cast (Auto) (0-5) /lpf U Epithel Cells (Auto) (0-5) /lpf Urine Bacteria (Auto) (Negative) Urine Osmolality (500-800) mOsm/kg Urine Opiates Screen (Neg) Ur Methadone, Qual (Neg) Urine Barbiturates (Neg) Ur Phencyclidine (PCP) (Neg) U Amphetamin/Meth Scrn (Neg) MDMA (Ecstasy) Screen (Neg) U Benzodiazepines Scrn (Neg) Ur Cocaine Metabolite (Neg) U Marijuana (THC) Screen (Neg) 07/11/09/20 11/09/20 Range/Units 19:20 17:00 17:00 WBC (4.8-10.8) K/uL RBC (4.7-6.1) M/uL Hgb (14.0-18.0) g/dL Hct (42-52) % MCV (80-100) fL MCH (25-34) pg MCHC (32-36) g/dL RDW Std Deviation (36.4-46.3) fL RDW Coeff of Bill (11.5-14.5) % Plt Count (130-400) K/uL MPV (7.4-10.4) fL Immature Gran % (Auto) % Neut % (Auto) % Lymph % (Auto) % [place] % (Auto) % Eos % (Auto) % Baso % (Auto) % Neut # (Auto) (1.4-6.5) K/uL Lymph # (Auto) (1.2-3.4) K/uL [place] # (Auto) (0.11-0.59) K/uL Eos # (Auto) (0-0.5) K/uL Baso # (Auto) (0-0.2) K/uL Immature Gran # (Auto) (0.00-0.02) K/uL VBG pH (7.36-7.41) VBG pCO2 (38-50) mmHg VBG pO2 mmHg VBG HCO3 mmol/L VBG O2 Saturation % VBG Base Excess mEq/L Barometric Pressure mm/Hg Sodium (136-145) mmol/L Potassium (3.5-5.1) mmol/L Chloride (98-107) mmol/L Carbon Dioxide (21-32) mmol/L Anion Gap (3-11) BUN (7-18) mg/dl Creatinine (0.6-1.4) mg/dl Est Cr Clr Drug Dosing ml/min Est GFR ( Amer) ml/min Est GFR (Non-Af Amer) ml/min BUN/Creatinine Ratio (10-20) Glucose (70-99) mg/dl Osmolality 291 (280-300) mOsm/kg Lactate (0.4-2.0) mmol/L Calcium (8.5-10.1) mg/dl Ionized Calcium (1.12-1.32) mmol/L Phosphorus (2.5-4.9) mg/dl Magnesium (1.8-2.4) mg/dl Specimen Hemolysis Urine Color Urine Appearance (Clear) Urine pH (4.5-7.5) Ur Specific [place] (1.000-1.030) Urine Protein (Negative) Urine Glucose (UA) (Negative) Urine Ketones (Negative) Urine Blood (Negative) Urine Nitrite (Negative) Urine Bilirubin (Negative) Urine Urobilinogen (Negative) Ur Leukocyte Esterase (Negative) Urine WBC (Auto) (0-5) /hpf Urine RBC (Auto) (0-4) /hpf U Hyaline Cast (Auto) (0-5) /lpf U Epithel Cells (Auto) (0-5) /lpf Urine Bacteria (Auto) (Negative) Urine Osmolality 360 L (500-800) mOsm/kg Urine Opiates Screen Neg (Neg) Ur Methadone, Qual Neg (Neg) Urine Barbiturates Neg (Neg) Ur Phencyclidine (PCP) Neg (Neg) U Amphetamin/Meth Scrn Neg (Neg) MDMA (Ecstasy) Screen Neg (Neg) U Benzodiazepines Scrn Neg (Neg) Ur Cocaine Metabolite Neg (Neg) U Marijuana (THC) Screen Neg (Neg) Medications Administered Current Inpatient Medications Acetaminophen (Acetaminophen 325 Mg Tab) 650 mg PO Q4H PRN PRN Reason: Pain or Fever Stop: 12/09/20 20:25 Parenteral Electrolytes (Normosol-R) 1,000 mls @ 150 mls/hr IV .Q6H40M [facility] Stop: 12/09/20 20:25 Last Admin: 11/10/20 16:57 Dose: 150 mls/hr Documented by: Lorazepam (Ativan) 4 mg in 8 mls @ 4 mls/min IV Q5M PRN PRN Reason: SEIZURE Stop: 12/09/20 21:51 Lacosamide (Lacosamide 50 Mg Tablet) 150 mg PO BID [facility] Stop: 12/09/20 20:59 Last Admin: 11/10/20 09:10 Dose: 150 mg Documented by: Ondansetron HCl (Ondansetron Inj 2 Mg/Ml 2 Ml Vial) 4 mg IV Q6H PRN PRN Reason: Nausea Stop: 12/09/20 20:25 Resident Activity Tracking Resident Involvement: Resident Care Provided Care Provided: Adult Hospital Medicine (1) Rhabdomyolysis Rhabdomyolysis type: non-traumatic Qualified Code(s): M62.82 - Rhabdomyolysis (2) Heat stress Encounter type: initial encounter Qualified Code(s): T67.8XXA - Other effects of heat and light, initial encounter
--- NOTE | 2020-11-11 01:33 | Communication Note ---
Date of Service: November 11, 2020 Called to bedside as patient was being belligerent and agitated, wanting to leave AMA. Was upset that he was moved from Telemetry to Med/Tele overnight due to his overall stable condition, and need for PCU Telemetry bed. He was loud in the room, using many expletives. I explained why I had moved him to a different room, however he again asked to leave AMA. I went over with him his diagnosis (rhabdomyolysis, LORENE, hyponatremia, metabolic acidosis) and explained risks of leaving the hospital (including but not limited to worsening kidney function / failure, compartment syndrome due to untreated rhabdo, cardiac arrhythmias due to electrolyte abnormalities, and ). Patient expressed understanding and signed [place] paperwork. I did advise patient to continue taking his seizure medication, as well as drink water PO in abundance. I also gave patient return precautions. Resident Activity Tracking Resident Involvement: Resident Care Provided Care Provided: Adult Hospital Medicine
--- NOTE | 2020-11-11 07:22 | Discharge Summary ---
Date of Service November 11, 2020 Admission HPI Per Admitting Provider Chief Complaint: generalized pain Primary Care Provider: JANE PCP 25 YOM with past medical history seizures 1 year ago on Vimpat. 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 He came to the EMD today for generalized body aches and pains, nausea and vomiting since yesterday. They were moving furniture all day yesterday up to 7 flights of stairs. He reports that he was sweaty all day and around lunch he just started getting nauseated and not able to keep water down or food down. He endorses that he did sweat all day but did start getting muscle cramps and feeling hot and then cold. In the EMD the patient had routine blood work done consistent with hypovolemia, Rhabdomyolysis. Patient received 2L of Crystalloid in the EMD and 1 dose of Toradol. Patient endorses he is feeling better now, but still remains very thirsty. Most of his pain is in his large muscle groups of his arms and legs. Cramps have subsided since he came to the ED. Nausea and vomiting is improved. CT scan of the abdomen was obtained in the EMD which was negative and head CT scan performed consistent with hemoconcentration. Patient will be admitted to PCU, resuscitated intravascularly follow serum sodium levels as well as neurological exams with his history of seizures. Patient endorses that his first seizure was last year while in [place] [facility], unprovoked with head laceration requiring sutures. He was discharged from [facility] and continued to have seizures while at home on Keppra. He was then admitted to the hospital in [place] and was started on Vimpat. He has not had a seizure since that time and states he did not seize yesterday. He also denies any routine drug use. Admission Exam Per Admitting Provider General: awake, alert, no apparent distress Head: Normocephalic, atraumatic ENT: PERRL, EOMI, no pharyngeal exudate, mucous membranes moist Neuro: AAO x 3, speech clear and appropriate, strength intact bilaterally 5/5, sensation intact and equal all extremities and dermatomes, no pronator drift Chest: equal rise and fall of the chest, no accessory muscle use, no heaves or thrills, Clear to auscultation, on room air, Cardiac: Regular rate and rhythm, telemetry reviewed- NSR, skin warm dry, cap refill <3 seconds, peripheral pulses +2 no JVD, no murmur, no edema GI: NABS x 4 quadrants, soft, nontender to palpation, no rebound, guarding or tenderness, nausea and vomiting resolved : Spontaneously voiding, no pain, no CVA tenderness, urine dark by report- patient denies coke colored urine Extremities/MSK Normal inspection, no peripheral edema or erythema, calfs nontender to palpation, muscles not tight and without firmness Psych: Normal mood and affect Skin: no rash or erythema Principal Diagnosis Heat stress with Rhabdomyolysis Discharge Exam Deferred, patient left AMA. Discharge Data Allergies Allergy/AdvReac Type Severity Reaction Status Date / Time levetiracetam [From Keppra] AdvReac Severe NOT Verified 11/09/20 16:31 EFFECTIVE--DON'T WORK Consultations 11/09/20 17:56 ED Decision to Admit Stat Ordered Studies 11/09/20 16:28 CT head/brain wo con Stat 11/09/20 16:51 CT abd pelvis wo con Stat Hospital Course (1) Rhabdomyolysis: *See associated communication report by Dr. Becerra Strenuous exercise induced rhabdomyolisis with complicating symptoms consistent with heat stress injury, Campuzano score- 5, CK on admit 713. Tox screen negative. Patient denied he seized or lost consciousness. He recieved IVF. Monitored BMP and CK. (2) Heat stress: Resolved, likely inciting event to above (3) Hypovolemia: Hbg 20.5 on admit, given IVF. Monitored CBC, last Hgb at 16. (4) Hyponatremia: On admit NA 128 with hypochloremia- consistent with hypovolemia hyponatremia. He received IVF. Monitored BMP last Na 134. Patient advised to stay hydrated (5) Hypercalcemia: On admit mild at 10.5- likely related to dehydration as above. Monitored BMP Ca last 8.5 (6) Metabolic acidosis: On admit HAGAP metabolic acidosis, likely related to BUN and Ketosis Resolved (7) LORENE (acute kidney injury): Likely physiology as above dehydration, heat stress, and elevated CK. Given IVF. Monitored Hco3- last HCO3 18 (8) Seizure: History of seizures refractory to Keppra. Placed on Vimpat- no dose adjustment needed for renal function at this time. Ordered Ativan PRN for seizures. Total Time Total Time Spent Total Time Spent (In Minutes): See attending attestation. Discharge Plan Discharge Items Patient Disposition: Against Medical Advice Reason For Visit: EBENEZER Activity: As commented below Non-emergency contact: Primary Care Provider Follow-up/Referrals: PCP,NO [Primary Care Provider] - Pending Studies at Discharge: No Stand-Alone Forms: My [employer], Smoking Cessation Medications and DC Order Prescriptions: Continued Vimpat 150 mg Tablet 150 mg PO BID RF: 0 Discontinued ketorolac [Toradol] 10 mg Tablet 0 mg PO ONCE PRN (Reason: Pain) RF: 0 Discharge Orders: Left Against Medical Advice (Routine); Ordered 11/11/20 Ordered By: Juliette Becerra Admission Data Admit Date/Time: 11/09/20 19:17 Attending Provider: Cayetano Tao Admit Provider: Antony Bauer Primary Care Provider: PCP,JANE Other Providers: Antony Bauer Other Interventions: Discharge Summary Assessment (RN) Last Done: 11/11/20 01:19 Supervising Physician Co-Signing Physician Notes Attending attestation Pt seen and examined in concert with Dr. Morris. In agreement with the documented findings as noted in the resident documentation with any exceptions or additions as noted here. Was improving prior to egress as noted in documentation. Exam from 11.10.20: S1/S2 nl RRR no MCG. CTAB. Abd NT/ND BS+ve. Trace LE edema to the ankle. LORENE in the setting of heat stress - creatinine downtrending to 1.67. Would warrant monitoring of BMP for resolution, encourage PO hydration. Rhabdomyolisis - CK of 713 - repeat MARY Hyponatremia - improved to 134 on 11.10.20 Else see resident documentation as noted. Resident Activity Tracking Resident Involvement: Resident Care Provided Care Provided: Adult Hospital Medicine
== END 2020-11-11 01:15 | disposition left against medical advice (07) | DRG 565 ==
LOC: ED 15:04 → 2S 19:17 → SUATTDRO 19:17 → 2S 20:04 → 2N 11-11 00:59